=== PATIENT | male | born 1975 | race Hispanic/Latino ===

== ENCOUNTER 2017-11-26 06:13 | Day surgery (SDC) | payer OTHER ==
[2017-11-25 15:57] LABS: EOSINOPHILS % (AUTO) 2.4 % (0.0-8.0); HEMATOCRIT 44.9 % (42-54); LYMPHOCYTES % (AUTO) 42.5 % (21.0-51.0); MEAN CORPUSCULAR HEMOGLOBIN 32.5 pg (27.0-33.0); MEAN CORPUSCULAR HGB CONC 34.9 g/dL (32.0-36.0); MEAN CORPUSCULAR VOLUME 93.1 fL (79-99); MONOCYTES % (AUTO) 6.8 % (3.0-13.0); NEUTROPHILS % (AUTO) 47.3 % (40.0-77.0); PLATELET COUNT (AUTO) 195 K/uL (130-400); RED BLOOD CELL COUNT(AUTO) 4.82 MIL/uL (4.50-6.20); RED CELL DISTRIBUTION WIDTH 13.6 % (11.0-15.5); WHITE BLOOD COUNT (AUTO) 6.6 K/uL (4.8-10.8)
[2017-11-25 16:07] LABS: CREATININE 0.9 mg/dL (0.5-1.5); POTASSIUM 4.2 mmol/L (3.5-5.1)
[2017-11-25 16:25] VITALS: BP 149/98
[2017-11-26] VITALS (14 sets, daily range): BP systolic 119–136; BP diastolic 79–90
[~2017-11-26] VITALS: Ht 170.2 cm; Wt 108.1 kg
[2017-11-26] MEDS: CLINDAMYCIN 900 MG/D5% WATER 50 ML IV SCH ×2 (06:00→09:06)
[~2017-11-26 06:13] MED LIST: LEVO125T11 PO; OMEP20CA10 PO; URSO300C4 PO; ZOLP10TA2 PO
[2017-11-26] MEDS ORDERED: LACTATED RINGERS 1000ML 1,000 ML IV ONE (06:42)
[2017-11-26] MEDS ORDERED: DEXAMETHASONE SOD PHOSPHATE 10MG/ML 1ML VIAL ONE (08:57)
[2017-11-26] MEDS ORDERED: MIDAZOLAM HCL 1 MG/ML 2ML VIAL ONE (08:58)
[2017-11-26] MEDS ORDERED: LIDOCAINE PF 2% 5ML ABBOJECT ONE (08:58)
[2017-11-26] MEDS ORDERED: FENTANYL CITRATE PF 50 MCG/1 ML 2ML VIAL ONE (08:58)
[2017-11-26] MEDS ORDERED: GLYCOPYRROLATE 0.2 MG/ML 5 ML VIAL ONE (08:58)
[2017-11-26] MEDS ORDERED: ONDANSETRON HCL 4 MG/2 ML VIAL ONE (08:58)
[2017-11-26] MEDS ORDERED: PROPOFOL 10 MG/ML 20ML VIAL IV ONE (08:58)
[2017-11-26] MEDS ORDERED: MEPERIDINE-PF 50 MG/ML SYG ONE (10:06)
[2017-11-26] MEDS ORDERED: MORPHINE SULFATE 2 MG/ML 1ML SYG ONE (10:22)
[2017-11-26] MEDS ORDERED: TYL3 PO (11:34)
[2017-11-26] MEDS ORDERED: CEPH500B PO (11:34)
== END 2017-11-26 12:10 ==
LOC: DAH 06:13
PROVIDERS: ATTEND Orthopaedic Surgery
DX: M23.222 Derangement of posterior horn of medial meniscus due to old tear or injury, left knee (principal); M94.262 Chondromalacia, left knee; Z79.899 Other long term (current) drug therapy; Z88.0 Allergy status to penicillin
CPT/HCPCS: 29881; 36415; 80048; 85025; A4606; A4649 ×2; A4930; A6223; J1100; J2001; J2175; J2250; J2405; J2704; J3010; J3490 ×2; J7030; J7120